=== PATIENT | female | born 1965 | race Caucasian/White ===

== ENCOUNTER 2021-04-07 12:50 | Emergency (ER) | payer MEDICAID ==
[~2021-04-07] VITALS: Ht 152.4 cm; Wt 75.7 kg
--- NOTE | 2021-04-07 13:15 | NUR ---
DR Peña at the bedside for MSE.
[2021-04-07] MEDS ORDERED: HYDROMORPHONE 1 MG/1 ML DISP.SYRIN IV ONE (13:30)
[2021-04-07] MEDS ORDERED: ONDANSETRON 4 MG/2 ML VIAL IV ONE (13:30)
[2021-04-07] MEDS ORDERED: IV NORMAL SALINE 1000 ML BAG IV ONE (13:30)
[2021-04-07 13:31] LABS: *BILIRUBIN,URIN 1+ (NEGATIVE); *BLOOD, URINE 3+ (NEGATIVE); *COLOR,URINE YELLOW (YELLOW); *KETONES,URINE 1+ (NEGATIVE); *URINE HCG, QUAL NEGATIVE (NEGATIVE); *UROBILINOGEN,URINE 0.2 E.U./dl (NORMAL); LEUKOCYTE ESTERASE ,URINE NEGATIVE (NEGATIVE); NITRITE, URINE NEGATIVE (NEGATIVE); PH,URINE 5.5 (5.0-8.0); UGLUCOSE TRACE (NEGATIVE)
[2021-04-07 13:32] LABS: *CLARITY,URINE CLOUDY (CLEAR)
[2021-04-07 13:46] LABS: HEMATOCRIT 39.7 % (31.2-41.9); MEAN CORPUSCULAR HEMOGLOBIN 29.5 uug (24.7-32.8); MEAN CORPUSCULAR VOLUME 90.3 fL (75.5-95.3); PLATELET COUNT (AUTO) 465 K/uL (179-408)
[2021-04-07 13:48] LABS: POTASSIUM 4.7 mmol/L (3.5-5.1)
[2021-04-07 13:53] LABS: BILIRUBIN,DIRECT 0.1 mg/dL (0.0-0.2); BILIRUBIN,TOTAL 0.2 mg/dL (0.2-1.0); TOTAL PROTEIN, SERUM 8.5 g/dL (6.4-8.2)
[2021-04-07] MEDS ORDERED: HYDROMORPHONE 1 MG/1 ML DISP.SYRIN ONE (14:08)
[2021-04-07] MEDS ORDERED: ONDANSETRON 4 MG/2 ML VIAL ONE (14:08)
[2021-04-07] MEDS ORDERED: HYDR-3980 PO (14:23)
[2021-04-07] MEDS ORDERED: TAMS-3 PO (14:24)
[2021-04-07] MEDS ORDERED: ONDA4TAB5 PO (14:25)
--- NOTE | 2021-04-07 15:01 | NUR ---
IV removed. Catheter intact and site benign. Pressure and 4x4 gauze applied to site. No bleeding noted.
[2021-04-07 15:02] VITALS: BP 155/88
--- NOTE | 2021-04-07 15:02 | NUR ---
Patient discharged to home in stable condition. Written and verbal after care instructions given. Patient verbalizes understanding of instructions. Stressed follow up or return to ER for worsening s/s.
[2021-04-07 16:07] LABS: BACTERIA,URINE 1 /HPF (NONE SEEN); RBC,URINE 20-50 /HPF (0-3); SQUAMOUS EPITHELIAL CELL,UR FEW /HPF (NONE SEEN); URINE AMORPHOUS URATE MODERATE /HPF
== END 2021-04-07 15:03 | disposition home or self-care (01) ==
LOC: ER 12:50
DX: N13.2 Hydronephrosis with renal and ureteral calculous obstruction (principal); K76.0 Fatty (change of) liver, not elsewhere classified; R94.31 Abnormal electrocardiogram [ECG] [EKG]
CPT/HCPCS: 36415; 74176; 80048; 80076; 81001; 83690; 84484; 84703; 85025; 85730; 93005; 96361; 96374; 96375; 99285; J1170; J2405; 70030-TC; A4663